=== PATIENT | male | born 1960 | race Caucasian/White ===

== ENCOUNTER 2018-10-22 14:49 | Emergency (ER) | payer OTHER ==
[~2018-10-22] VITALS: Ht 177.8 cm; Wt 67.1 kg
[~2018-10-22 14:49] MED LIST: SUBOXONE 8 MG-21 TAB; THO25
[2018-10-22 14:54] VITALS: Ht 177.8 cm; Wt 67.1 kg
[2018-10-22 17:00] VITALS: BP 168/58
== END 2018-10-22 17:00 | disposition home or self-care (01) ==
LOC: ED 14:49
DX: L03.011 Cellulitis of right finger (principal); J44.9 Chronic obstructive pulmonary disease, unspecified; F17.210 Nicotine dependence, cigarettes, uncomplicated; Z88.0 Allergy status to penicillin